=== PATIENT | female | born 1975 | race Two or more races ===

== ENCOUNTER → 2018-04-25 | Outpatient (CLI) | payer OTHER ==
--- NOTE | 2018-04-26 14:25 | KCIC ---
Bilateral digital screening mammograms: Reason for examination: Routine screening. Comparison is made to previous study dated 11/30/2014. Interpretation was made with the benefit of CAD. The skin and nipples show no abnormalities. No abnormal axillary lymph nodes are seen. The breast parenchyma shows scattered fibroglandular density. (Breast density: Category B.) There appears to be some increased nodularity to the parenchyma in the upper outer quadrant of the left breast at approximately the 2:00 position posteriorly. Recommend further evaluation with coned compression views and ultrasound. There are no other dominant masses, suspicious calcifications or architectural distortions. Impression: Increase in nodularity at the 2:00 position of the left breast posteriorly. Recommend further evaluation with coned compression views and ultrasound. BI-RADS Category 0: Incomplete. Needs additional imaging evaluation. "Our facility is accredited by the [employer] Mammography [employer]." This patient's information has been entered into a reminder system for the patient to be notified with the results of her examination and a target date for the next mammogram. Electronically signed by: Breonna Dubose MD (04/26/2018 2:22 PM) [id number]
== END | disposition home or self-care (01) ==
LOC: KCIC MAMMO 08:30
PROVIDERS: ATTEND Family Medicine
DX: Z12.31 Encounter for screening mammogram for malignant neoplasm of breast (principal)
CPT/HCPCS: 77067

== ENCOUNTER → 2018-05-16 | Outpatient (CLI) | payer OTHER ==
--- NOTE | 2018-05-16 09:58 | KCIC ---
Left breast diagnostic digital mammograms: Reason for examination: Nodularity on screening mammogram. Comparison is made to mammographic exam dated 04/25/2018. Cone compression views were obtained in CC and oblique projections with attention to the upper outer quadrant. There continues to be some patchy parenchymal asymmetry but no suspicious nodule is seen. Further evaluation with ultrasound will follow. IMPRESSION: Mild patchy asymmetry in the upper outer quadrant of the left breast. Ultrasound to follow. BI-RADS Category 0: Incomplete. Needs additional imaging evaluation. Left breast ultrasound: Ultrasound examination of the left breast was performed with attention to the upper outer quadrant and axilla. There is a small focus of fibrocystic-type change measuring 7.9 x 6.5 mm in size at the 2:00 position 9 cm from the nipple. No suspicious-appearing nodules are seen. No abnormal appearing lymph nodes are seen in the axilla. IMPRESSION: Focal fibrocystic type changes at the 2:00 position 9 cm from the nipple measuring up to 7.9 mm in size. No suspicious lesion seen. Recommend 6 month sonographic follow-up. BI-RADS Category 3: Probably Benign. "Our facility is accredited by the [employer] Mammography [employer]." This patient's information has been entered into a reminder system for the patient to be notified with the results of her examination and a target date for the next mammogram. Electronically signed by: Breonna Dubose MD (05/16/2018 9:54 AM) [id number]
== END | disposition home or self-care (01) ==
LOC: KCIC MAMMO 08:21
PROVIDERS: ATTEND Family Medicine
DX: R92.2 Inconclusive mammogram (principal)
CPT/HCPCS: 76641; 77065